=== PATIENT | male | born 1985 | race Caucasian/White ===

== ENCOUNTER 2024-04-23 20:24 | Emergency (ER) | payer SELFPAY ==
[~2024-04-23] VITALS: Ht 180.3 cm; Wt 117.9 kg
[2024-04-23 20:40] VITALS: BP 159/112; PULSE 113; RESP 18; TEMP 97.8; O2SAT 99
[2024-04-23 21:07] VITALS: O2SAT 99
== END 2024-04-23 21:25 | disposition home or self-care (01) ==
LOC: MED 20:24
DX: R03.0 Elevated blood-pressure reading, without diagnosis of hypertension (principal); Z00.8 Encounter for other general examination; Z79.899 Other long term (current) drug therapy
CPT/HCPCS: 99281